=== PATIENT | female | born 1995 | race African-American/Black ===

== ENCOUNTER 2017-05-07 07:01 | Outpatient (CLI) | payer MEDICAID, OTHER | END 2017-05-07 07:02 | disposition home or self-care (01) | LOC: BICULT 07:01 | PROVIDERS: ATTEND Family Medicine | DX: Z34.92 Encounter for supervision of normal pregnancy, unspecified, second trimester (principal); Z3A.20 20 weeks gestation of pregnancy | CPT/HCPCS: 76805 ==

== ENCOUNTER 2017-05-21 17:33 | Day surgery (SDC) | payer OTHER ==
[2017-05-21 18:40] VITALS: BMI 30.2
[2017-05-21 20:58] LABS: Bilirubin Negative (Negative); Blood, Urine Negative (Negative); Clarity CLEAR (Clear); Glucose, Urine (Dipstick) Negative (Negative); Leukocyte Small (Negative); Nitrite Negative (Negative); Protein, Urine (Dipstick) Negative (Neg-Trace); Specific Gravity, Urine 1.017 (1.002-1.036); Urobilinogen 0.2 mg/dL (0.2-1.0)
[2017-05-21 21:00] LABS: Bacteria/HPF Rare-Few HPF (None Seen); Hyaline Casts/LPF 0-3 HYALINE CAST LPF (0-3 Hyaline); RBC/HPF 0-3 HPF (0-3); Squamous Epithelial 0-3 HPF (0-3); WBC/HPF 0-3 HPF (0-3)
--- NOTE | 2017-05-21 21:17 | ULT ---
OB ULTRASOUND: 05/21/17 HISTORY: Patient hit in abdomen. Real time images of the pelvis show a single viable intrauterine in a breech presentation. Placenta is posterior and fundal in location. Amniotic fluid is adequate for this stage of . The heart rate is 152 beats per minute. No anomalies detected on this exam. measurements are as follows: BPD 5.1 cm 21 weeks, 3 days Head circumference 20.2 cm 22 weeks, 2 days Abdominal circumference 18.4 cm 23 weeks, 2 days Femur length 4 cm 22 weeks, 6 days IMPRESSION: 1. Single viable intrauterine . Breech presentation. Overall measurements corresponding to a gestational age of 22 weeks, 3 days. Estimated date of delivery 09/21/17. 2. Placenta which is posterior in location without evidence of previa. POS: [facility]
--- NOTE | 2017-05-22 22:38 | PRG ---
DATE OF SERVICE: 05/22/2017 CHIEF COMPLAINT: Hit on abdomen. HISTORY OF PRESENT ILLNESS: At the time of presentation, Ms. Solorio is a 21-year-old G2, P1 female with a history of prior section, who was at [address] Sarah is her evs manager and primary care physician. The patient works at a fast food restaurant and states that she lifted a heavy urn and felt a pulling sensation in her left groin. Shortly thereafter, she took Tylenol and had resolution of her symptoms. However, a fellow employee accidentally bumped her abdomen with her elbow and the patient was concerned, so presents for evaluation. She denies any fever or chills. S he denies any vaginal bleeding or leakage of fluid. She does report movement. She denies any hematuria or dysuria. REVIEW OF SYSTEMS: Limited review of systems per HPI. PAST SURGICAL HISTORY: 1. section. 2. Tonsils and adenoids. PAST MEDICAL HISTORY: Negative. OBSTETRICAL HISTORY: 1. section x1. 2. Current . MEDICATIONS: 1. vitamins. 2. Stool softener. ALLERGIES: No known drug allergies. PHYSICAL EXAMINATION: VITAL SIGNS: Blood pressure 106/53, pulse 80, respiratory rate 18, temperature 98.5. GENERAL: Nontoxic-appearing female, in no acute distress. OBSTETRIC: heart tracing baseline in 150s and within normal limits for gestational age. HEENT: Normocephalic, atraumatic. LUNGS: Respirations are unlabored. ABDOMEN: Gravid. There is no ecchymosis noted. There is a well-healed Pfannenstiel skin incision n oted. The fundus itself is nontender and there is no tenderness in the left groin region, nor is the re any palpable mass. LABORATORY DATA AND STUDIES: Urinalysis is negative for pyuria or hematuria. Ultrasound shows no ab normalities of a posterior placenta. ASSESSMENT AND PLAN: The patient is discharged to home with routine OB precautions and encouraged to keep her scheduled followup with Dr. Sarah.
== END 2017-05-21 21:23 | disposition home or self-care (01) ==
LOC: L&D/OP 17:33
PROVIDERS: ATTEND Family Medicine
DX: O99.89 Other specified diseases and conditions complicating pregnancy, childbirth and the puerperium (principal); W50.0XXA Accidental hit or strike by another person, initial encounter; Y92.511 Restaurant or cafe as the place of occurrence of the external cause; Y99.0 Civilian activity done for income or pay; Z3A.23 23 weeks gestation of pregnancy; Z79.899 Other long term (current) drug therapy; Z98.890 Other specified postprocedural states
CPT/HCPCS: 59025; 76805; 81001; 99282

== ENCOUNTER 2017-07-02 18:12 | Day surgery (SDC) | payer MEDICAID, OTHER ==
[2017-07-02 19:10] VITALS: BMI 31.8
--- NOTE | 2017-07-02 19:19 | PDOC.LDHP ---
Labor and Delivery H&P Chief complaint: other (one week constipation) HPI: 21 yo prior CS at term for FTP in 2015, here for lower pelvic cramping. No VB, no sxs of ROM. No recent sex nor trauma. No PIH sxs. She reports long HX constipation this and is on a red "pill" to help with constipation (I assume colase, but she is unsure). Good FM. She sees Dr Sarah for care. her EDC is 09/14...EGA 29 weeks 3 days. Current gestational age (weeks): 29 (3 days) Due date: 09/14/17 Dating criteria: last menstrual period Grav: 2 Para: 1 Current complications: none Abnormal US findings: No Current medications: other (Colase?) Previous surgical history: low tranverse CS (Prior CS at term 2014), other Allergies/Adverse Reactions: Allergies Allergy/AdvReac Type Severity Reaction Status Date / Time No Known Allergies Allergy Verified 07/02/17 19:04 - Physical Exam Vital signs reviewed and normal: yes General: NAD Lungs: CTAB Abdomen: NTTP Extremeties: no edema FHT: category 1 - Plan Plan: observation in L&D (Assesment: Pelvic cramping at 29 weeks. I suspect her constipation is causing her discomfort. However, I have ordered an FFN and cervical length to assess this complaint. I have also ordered a fleets enema as she has not had a BM in about one week. Observe for now.)
[2017-07-02] MEDS ORDERED: Mineral Oil ENEMA PR SCH (19:30)
[2017-07-02 20:07] LABS: FFN Internal QC Analyzer PASS (PASS); FFN Internal QC Cassette PASS (PASS); Fetal Fibronectin Negative (Negative)
--- NOTE | 2017-07-02 20:11 | PDOC.EVN ---
Event Note - Event Note Event Note: FFN negative. Cervical sono pending. FHTS reactive.
--- NOTE | 2017-07-02 20:30 | ULT ---
LIMITED OB ULTRASOUND: 07/02/17 INDICATION: Exam was requested to assess cervical length only. The patient having contractions. IMPRESSION: Cervical length recorded at 3.5 cm. POS: [facility]
--- NOTE | 2017-07-02 21:04 | PDOC.EVN ---
Event Note - Event Note Event Note: CX length >3cm, no results from fleet after 30minutes. May repeat feets..calling pharmacy to confirm another fleets ok to give.
--- NOTE | 2017-07-02 21:10 | PDOC.EVN ---
Event Note - Event Note Event Note: After pharmacy, only one fleets in 24 hours, give soap suds enema X 1 and then ok for home discharge to await BM if none after 30 minutes.
--- NOTE | 2017-07-02 22:20 | PDOC.EVN ---
Event Note - Event Note Event Note: Follow up at 2219: patient passed small stool but not a large amount. No evidence PTL. As we have given her two different enemas, we will send her home to see if she has a delayed effect of BM. We advised her to see Dr henry in AM and if no relief by then, return to L&D for referral to GI for possible disimpaction.
== END 2017-07-02 22:37 | disposition home or self-care (01) ==
LOC: L&D/OP 18:12
PROVIDERS: ATTEND Family Medicine
DX: O99.613 Diseases of the digestive system complicating pregnancy, third trimester (principal); K59.00 Constipation, unspecified; Z3A.29 29 weeks gestation of pregnancy; Z79.899 Other long term (current) drug therapy; Z98.891 History of uterine scar from previous surgery
CPT/HCPCS: 76815; 82731; 99282

== ENCOUNTER 2017-08-19 08:23 | Day surgery (SDC) | payer OTHER ==
[2017-08-19] MEDS ORDERED: Metoclopramide HCl 10 MG/2 ML VIAL IM PRN (09:02)
[2017-08-19] MEDS ORDERED: diphenhydrAMINE 50 MG/ML VIAL IM PRN (09:03)
--- NOTE | 2017-08-19 09:10 | PDOC.LDHP ---
Labor and Delivery H&P Chief complaint: other (headache) HPI: 21 y/o at 36w2d, patient of Dr. Sarah, presents with a 3 day history of headache. She tried Advil and Tylenol with no relief. Denies VB, LOF, ctx, or decreased FM. + photophobia, photophonia. Denies vision changes or RUQ pain. ROS neg for HEENT, cv, pulm, gi, gu, neuro, psych, skin, musculoskeletal, or constitutional. OB History Details: 1 prior term Current complications: none Past Medical History: None Current medications: pre- vitamins Previous surgical history: none Allergies/Adverse Reactions: Allergies Allergy/AdvReac Type Severity Reaction Status Date / Time No Known Allergies Allergy Verified 08/19/17 09:20 Social history: none - Physical Exam Vital signs reviewed and normal: yes General: NAD, resting Lungs: nonlabored breathing Abdomen: gravid Extremeties: no edema FHT: category 1 (130s, mod variability, + accels, no decels) [place] contractions every: none - OB Labs Blood type: A RH: positive Antibody Screen: negative HIV: negative RPR: negative HEPSAg: negative 1 hour GCT: negative GBS: unknown Rubella: immune - Assessment 21 y/o at 36w2d with migraine ORELLANA. BP wnl. Given Reglan/Benadryl protocol with improvement of symptoms. status reassuring with reactive NST. - Plan -: D/c home with precautions. Advised to take only Tylenol for pain, no Advil or ibuprofen.
[2017-08-19 09:20] VITALS: BMI 33.6
== END 2017-08-19 10:18 | disposition home or self-care (01) ==
LOC: L&D/OP 08:23
PROVIDERS: ATTEND Family Medicine
DX: O99.353 Diseases of the nervous system complicating pregnancy, third trimester (principal); G43.909 Migraine, unspecified, not intractable, without status migrainosus; H53.149 Visual discomfort, unspecified; Z79.899 Other long term (current) drug therapy; Z3A.36 36 weeks gestation of pregnancy
CPT/HCPCS: 99282; J1200; J2765

== ENCOUNTER 2018-06-27 09:31 | Emergency (ER) | payer OTHER, SELFPAY | END 2018-06-27 10:55 | disposition home or self-care (01) | LOC: ERS 09:31 | DX: J06.9 Acute upper respiratory infection, unspecified (principal); F32.9 Major depressive disorder, single episode, unspecified | CPT/HCPCS: 87081; 87430; 87804; 99283 ==

== ENCOUNTER 2019-12-12 11:12 | Emergency (ER) | payer OTHER ==
[2019-12-13 14:32] LABS: SARS-CoV-2 MS2 Positive; SARS-CoV-2 N Gene Negative; SARS-CoV-2 S Gene Negative; SARS-CoV-2 orf1ab Negative
== END 2019-12-12 11:50 | disposition home or self-care (01) ==
LOC: ERS 11:12
DX: Z20.828 Contact with and (suspected) exposure to other viral communicable diseases (principal); F32.9 Major depressive disorder, single episode, unspecified
CPT/HCPCS: 87635; 99284; U0003

== ENCOUNTER 2020-06-19 16:47 | Day surgery (SDC) | payer OTHER ==
[2020-06-19] MEDS ORDERED: hydrALAZINE 20 MG/ML VIAL SLOW IVP PRN (16:52)
[2020-06-19 17:19] VITALS: BP 109/59; TEMP 99.1
[2020-06-19 17:21] VITALS: BMI 37.3
--- NOTE | 2020-06-19 17:49 | PDOC.LDHP ---
Labor and Delivery H&P Chief complaint: contractions HPI: 24 y/o at 36w1d, patient of Dr. Sarah, presents with ctx since this morning. They progressed to q6 mins so she came in to be evaluated. After further discussion, it appears the pelvic pressure and pain she has been experiencing is more bothersome. Pelvic pain worse with movement. Denies VB, LOF, UTI sx, or other complaints. +FM. ROS neg for HEENT, cv, pulm, gi, gu, neuro, psych, skin, musculoskeletal or constitutional symptoms other than mentioned above. OB History Details: 1st - term LTCS for failure to progress 2nd - term LTCS for repeat elective Past Medical History: Anemia GC/CT this Current medications: pre-roxy vitamins Previous surgical history: low tranverse CS (x2), other (tonsillectomy) Allergies/Adverse Reactions: Allergies Allergy/AdvReac Type Severity Reaction Status Date / Time No Known Allergies Allergy Verified 08/14/19 11:46 Social history: drug use (marijuana) - Physical Exam Vital signs reviewed and normal: yes General: NAD, resting Lungs: nonlabored breathing Abdomen: gravid Extremeties: no edema FHT: category 1 (135, mod variability, + accels, no decels) - Vaginal Exam cm dilated: 0 Effacement: 0% Station: -3 - OB Labs Blood type: A RH: positive - Assessment 24 y/o at 36w6d with no e/o active labor and likely musculoskeletal discomforts of . status reassuring with reactive NST. - Plan -: D/c home with precautions. Advised to keep appointment for tomorrow.
[2020-06-20] MEDS ORDERED: FLU VACC QS2020-21(6MOS UP)/PF 60 MCG/0.5 ML SYRINGE IM ONE (09:00)
== END 2020-06-19 18:37 | disposition home or self-care (01) ==
LOC: L&D/OP 16:47
PROVIDERS: ATTEND Family Medicine
DX: O26.893 Other specified pregnancy related conditions, third trimester (principal); R10.2 Pelvic and perineal pain; O47.03 False labor before 37 completed weeks of gestation, third trimester; O99.013 Anemia complicating pregnancy, third trimester; D64.9 Anemia, unspecified; O34.211 Maternal care for low transverse scar from previous cesarean delivery; Z3A.36 36 weeks gestation of pregnancy
CPT/HCPCS: 99282

== ENCOUNTER 2020-07-06 08:09 | Outpatient (CLI) | payer OTHER ==
[2020-07-06 16:56] LABS: SARS-CoV-2 PCR by NAA Not Detected (NotDetected)
== END 2020-07-06 08:10 | disposition home or self-care (01) ==
LOC: LABBT 08:09
PROVIDERS: ATTEND Family Medicine
DX: Z20.822 Contact with and (suspected) exposure to COVID-19 (principal)
CPT/HCPCS: 87635; U0003; U0005

== ENCOUNTER 2023-03-27 07:42 | Emergency (ER) | payer MEDICAID, OTHER ==
[2023-03-27] MEDS ORDERED: Ketorolac Tromethamine 30 MG/ML VIAL ONE (08:45)
== END 2023-03-27 09:23 | disposition home or self-care (01) ==
LOC: ERS 07:42
DX: S12.200A Unspecified displaced fracture of third cervical vertebra, initial encounter for closed fracture (principal); H60.92 Unspecified otitis externa, left ear; H73.92 Unspecified disorder of tympanic membrane, left ear; V89.2XXA Person injured in unspecified motor-vehicle accident, traffic, initial encounter
CPT/HCPCS: 70450; 72125; 96372; J1885

== ENCOUNTER 2023-04-14 07:42 | Outpatient (CLI) | payer OTHER | END 2023-04-14 07:43 | disposition home or self-care (01) | LOC: BICRAD 07:42 | PROVIDERS: ATTEND Neurological Surgery | DX: S12.9XXA Fracture of neck, unspecified, initial encounter (principal) | CPT/HCPCS: 72050 ==

== ENCOUNTER 2025-04-28 03:47 | Emergency (ER) | payer MEDICAID, SELFPAY ==
[2025-04-28 04:39] LABS: #Basophils 0.04 10x3/uL (0.0-0.2); #Eosinophils 0.07 10x3/uL (0.0-0.7); #Monocytes 0.39 10x3/uL (0.11-0.59); #Neutrophils 4.35 10x3/uL (1.40-6.50); %Basophils 0.6 % (0.0-1.0); %Eosinophils 1.1 % (0.0-10.0); %Lymphocytes 22.8 % (21.0-51.0); %Monocytes 6.2 % (0.0-10.0); %Neutrophils 69.0 % (42.0-75.0); Hematocrit 39.8 % (36.0-47.0); Hemoglobin 12.8 g/dL (12.0-16.0); Mean Corpuscular Hemoglobin 28.6 pg (27.0-31.0); Mean Corpuscular Volume 89.0 fL (78.0-98.0); Platelet Count 208 10x3/uL (130-400); Red Blood Cell (RBC) Count 4.47 mill/uL (4.20-5.40); White Blood Cell (WBC) Count 6.31 10x3/uL (4.8-10.8)
[2025-04-28 04:53] LABS: ALT (SGPT) 14 U/L (Less than 34); AST (SGOT) 25 U/L (11-34); Albumin 4.3 g/dL (3.1-4.5); Alkaline Phosphatase 44 U/L (40-110); Anion Gap 11 mmol/L (10-20); BUN (Urea Nitrogen) 11 mg/dL (7.0-18.7); Bilirubin, Total 0.4 mg/dL (0.3-1.2); Calc. Creatinine Clearance 0 mL/min (70-130); Calcium 9.4 mg/dL (7.8-10.44); Carbon Dioxide 25 mmol/L (22-29); Chloride 105 mmol/L (98-107); Globulin 3.3 g/dL (2.4-3.5); Glucose 106 mg/dL (70-105); Potassium 3.7 mmol/L (3.5-5.1); Sodium 137 mmol/L (136-145)
[2025-04-28 05:16] LABS: BHCG - Serum Negative (NEGATIVE); Pregs Control Background? CLEAR/WHITE (CLR/WHITE); Pregs Control Bar Appear? YES (CONTROL BAR)
== END 2025-04-28 06:10 | disposition home or self-care (01) ==
LOC: ERS 03:47
DX: R56.9 Unspecified convulsions (principal); Z79.899 Other long term (current) drug therapy
CPT/HCPCS: 70450; 80053; 83605; 84703; 85025; 93005